=== PATIENT | female | born 2000 | race Caucasian/White ===

== ENCOUNTER 2025-05-11 12:07 | Emergency (ER) | payer SELFPAY ==
[2025-05-11 12:12] VITALS: BP 136/85
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
== END 2025-05-11 17:05 | disposition home or self-care (01) ==
LOC: EMR 12:07
PROVIDERS: EMERGENCY PHYSICIAN Emergency Medicine
DX: O9A.211 Injury, poisoning and certain other consequences of external causes complicating pregnancy, first trimester (principal); S40.021A Contusion of right upper arm, initial encounter; O99.511 Diseases of the respiratory system complicating pregnancy, first trimester; J45.909 Unspecified asthma, uncomplicated; V43.62XA Car passenger injured in collision with other type car in traffic accident, initial encounter; Y92.410 Unspecified street and highway as the place of occurrence of the external cause; Z3A.11 11 weeks gestation of pregnancy
CPT/HCPCS: 99284; 76801

== ENCOUNTER → 2025-06-20 13:32 | Outpatient (REF) | payer BC, SELFPAY | LOC: PNTC 13:32 | PROVIDERS: ATTENDING PHYSICIAN Obstetrics & Gynecology | DX: Z87.51 Personal history of pre-term labor (principal); Z87.59 Personal history of other complications of pregnancy, childbirth and the puerperium | CPT/HCPCS: 76805; 76817 ==

== ENCOUNTER → 2025-07-05 11:18 | Outpatient (REF) | payer BC, SELFPAY | LOC: PNTC 11:18 | PROVIDERS: ATTENDING PHYSICIAN Obstetrics & Gynecology | DX: Z36.86 Encounter for antenatal screening for cervical length (principal); Z87.51 Personal history of pre-term labor; Z87.59 Personal history of other complications of pregnancy, childbirth and the puerperium | CPT/HCPCS: 76815; 76817 ==

== ENCOUNTER 2025-07-10 21:43 | Observation (INO) | payer BC, SELFPAY ==
[2025-07-10 22:07] VITALS: BP 130/78; BMI 25.7
== END 2025-07-10 22:32 | disposition home or self-care (01) ==
LOC: LDRP 21:43
PROVIDERS: ADMITTING PHYSICIAN Obstetrics & Gynecology
DX: Z03.79 Encounter for other suspected maternal and fetal conditions ruled out (principal); Z3A.19 19 weeks gestation of pregnancy
CPT/HCPCS: G0378

== ENCOUNTER → 2025-07-25 09:57 | Outpatient (REF) | payer BC, SELFPAY | LOC: PNTC 09:57 | PROVIDERS: ATTENDING PHYSICIAN Obstetrics & Gynecology | DX: Z87.51 Personal history of pre-term labor (principal); Z87.59 Personal history of other complications of pregnancy, childbirth and the puerperium; Z36.3 Encounter for antenatal screening for malformations; Z36.86 Encounter for antenatal screening for cervical length; O34.211 Maternal care for low transverse scar from previous cesarean delivery | CPT/HCPCS: 76811; 76817; 93976 ==